=== PATIENT | female | born 2000 | race African-American/Black ===

== ENCOUNTER → 2020-04-19 | Outpatient (CLI) | payer OTHER ==
--- NOTE | 2020-04-19 17:30 | KCIC ---
Bone age study: Clinical indications: Short stature. Findings: Chronological age is 19 years and 7 months or a total of 235 months. PA view of the left mason nd and wrist was performed. Comparison is made to the female standards within the RADIOGRAPHIC ATLAS OF SKELETAL DEVELOPMENT OF THE HAND AND WRIST by Greulich and Tru, second edition. Bone age is 18 ye ars and 0 months or a total of 216 months. The skeletal age mean data is only available to 15 years of age. Subjectively the bone age is normal for patient's chronological age. The atlas notes that the 18 year -old radiograph of the hand is indistinguishable from an adult hand. This patient's hand radiograph r esembles that of an adult hand. Impression: The bone age is likely normal for patient's chronological age. Please see above discussion. Electronically signed by: Tiago Foss MD (04/19/2020 5:27 PM) [id number]
== END ==
LOC: KCIC 10:54
PROVIDERS: ATTEND Family Medicine
DX: R62.52 Short stature (child) (principal)
CPT/HCPCS: 77072